=== PATIENT | male | born 1995 | race Caucasian/White ===

== ENCOUNTER 2016-08-04 22:09 | Emergency (ER) | payer SELFPAY ==
[~2016-08-04] VITALS: Ht 175.3 cm; Wt 77.0 kg
[2016-08-04 22:13] VITALS: Ht 175.3 cm; Wt 77.0 kg
[2016-08-04] MEDS ORDERED: DIPHTH/TET/ACEL PERTUSS (ADULT) 0.5 ML VIAL IM* ONE (23:00)
[2016-08-04] MEDS ORDERED: CEFAZOLIN 1 GM INJ IM ONE (23:00)
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
--- NOTE | 2016-08-05 00:18 | RADRPT ---
PROCEDURE: XR Femur. CLINICAL INDICATION: Right thigh pain following injury TECHNIQUE: AP and cross-table lateral views of the right femur were performed a total of 4 images sent to the PACS for review. COMPARISON: None. FINDINGS: There is normal mineralization and alignment. No fracture or osseous lesion is identified. There are normal joints without evidence of arthritis or effusion. No lytic or blastic lesions are evident. T he soft tissues are unremarkable. RPTAT:HJJR IMPRESSION: Unremarkable right femur series. Physician Hiram Date Time Electronically viewed and signed by Physician Hiram on 08/05/2016 00:18 JR/
[2016-08-05] MEDS ORDERED: HYDROCODONE/APAP (10/325) TAB PO ONE (01:00)
[2016-08-05] MEDS ORDERED: CEPH-443 PO (01:33)
[2016-08-05] MEDS ORDERED: HYDR-902 PO (01:33)
[2016-08-05] MEDS ORDERED: IBUP-1542 PO (01:33)
[2016-08-05 02:18] VITALS: BP 118/59; PULSE 74; RESP 16; TEMP 98.3
== END 2016-08-05 02:20 | disposition home or self-care (01) ==
LOC: FTE 22:09
DX: S71.111A Laceration without foreign body, right thigh, initial encounter (principal); W25.XXXA Contact with sharp glass, initial encounter; Y92.9 Unspecified place or not applicable; Z23 Encounter for immunization
CPT/HCPCS: 12004; 12034; 73550; 90471; 90715; 96372; 99284; J0690

== ENCOUNTER 2016-08-07 09:10 | Emergency (ER) | payer MEDICAID ==
[~2016-08-07] VITALS: Ht 175.3 cm; Wt 68.9 kg
[~2016-08-07 09:10] MED LIST: CEPH-443 PO; HYDR-902 PO; IBUP-1542 PO
[2016-08-07 09:13] VITALS: Ht 175.3 cm; Wt 68.9 kg
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
== END 2016-08-07 10:51 | disposition home or self-care (01) ==
LOC: FTE 09:10
DX: Z48.01 Encounter for change or removal of surgical wound dressing (principal)
CPT/HCPCS: 99281

== ENCOUNTER 2016-08-14 10:50 | Emergency (ER) | payer MEDICAID ==
[~2016-08-14] VITALS: Ht 170.2 cm; Wt 77.5 kg
[2016-08-14 11:08] VITALS: Ht 170.2 cm; Wt 77.5 kg
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
== END 2016-08-14 12:15 | disposition home or self-care (01) ==
LOC: FTE 10:50
DX: Z48.02 Encounter for removal of sutures (principal)
CPT/HCPCS: 99281

== ENCOUNTER 2017-05-07 12:44 | Emergency (ER) | END 2017-05-07 13:35 | disposition home or self-care (01) ==

== ENCOUNTER 2017-12-27 09:42 | Emergency (ER) | END 2017-12-27 10:57 | disposition home or self-care (01) ==